=== PATIENT | male | born 1995 | race African-American/Black ===

== ENCOUNTER 2023-08-03 10:13 | Emergency (ER) | payer OTHER ==
[~2023-08-03] VITALS: Ht 185.4 cm; Wt 99.8 kg
[~2023-08-03 10:13] MED LIST: IBUP-2030 MT
[2023-08-03 10:35] VITALS: O2SAT 100
[2023-08-03] MEDS ORDERED: IBUP-2030 MT (12:53)
[2023-08-03 14:13] VITALS: BP 131/91; PULSE 74; RESP 18; TEMP 98.2
== END 2023-08-03 14:17 | disposition home or self-care (01) ==
LOC: ER 10:13
DX: S92.352A Displaced fracture of fifth metatarsal bone, left foot, initial encounter for closed fracture (principal); S82.52XA Displaced fracture of medial malleolus of left tibia, initial encounter for closed fracture; F12.90 Cannabis use, unspecified, uncomplicated; X58.XXXA Exposure to other specified factors, initial encounter; Y93.89 Activity, other specified; Y92.89 Other specified places as the place of occurrence of the external cause; Y99.8 Other external cause status
CPT/HCPCS: 73600; 73630; 29515; 99284; Z7610

== ENCOUNTER 2024-06-14 11:57 | Emergency (ER) | payer OTHER ==
[~2024-06-14] VITALS: Ht 182.9 cm; Wt 100.0 kg
[2024-06-14 12:39] VITALS: O2SAT 99
[2024-06-14] MEDS: KETOROLAC 30MG/ML VIAL IM ONE (13:38)
[2024-06-14 13:57] VITALS: BP 112/82; PULSE 72; RESP 18; TEMP 36.9; O2SAT 98
== END 2024-06-14 14:00 | disposition home or self-care (01) ==
LOC: ER 11:57
DX: M25.511 Pain in right shoulder (principal); F12.10 Cannabis abuse, uncomplicated
CPT/HCPCS: 99283; 73030; 96372; J1885